=== PATIENT | female | born 1980 | race Caucasian/White ===

== ENCOUNTER 2017-11-22 23:44 | Emergency (ER) | payer SELFPAY ==
[~2017-11-22] VITALS: Ht 157.5 cm; Wt 72.5 kg
[~2017-11-22 23:44] MED LIST: ANTIVERT 25MG25 MG PO; MACROBID 1100 MG/CAP PO; NO HOME MEDICATIONS; NORCO 325 MG-51 TAB PO; NORCO 325 MG-7.1 TAB PO; PYRIDIUM200 M1 PO
[2017-11-22 23:47] VITALS: BP 100/64; PULSE 81; TEMP 97.9
[2017-11-23 00:15] LABS: COLLECTION METHOD CLEAN CATCH
[2017-11-23 00:40] LABS: AMORPHOUS CRYSTAL Present /uL; MUCOUS Present /lpf; PH 5 (5-8); URINE APPEARANCE Cloudy; URINE BACTERIA Occasional /hpf; URINE BILIRUBIN Negative (NEGATIVE); URINE BLOOD 3+ (NEGATIVE); URINE COLOR Red; URINE GLUCOSE 1+ (NEGATIVE); URINE KETONE Negative (NEGATIVE); URINE LEUKOCYTE ESTERASE Negative (NEGATIVE); URINE NITRATE Positive (NEGATIVE); URINE PROTEIN(semi-quant) 3+ (NEGATIVE); URINE RBC >50 /hpf; URINE UROBILINOGEN >=4.0 mg/dL (NEGATIVE)
[2017-11-23] MEDS ORDERED: MACROBID 1100 MG/CAP PO (00:57)
== END 2017-11-23 01:17 | disposition home or self-care (01) ==
LOC: COL.ER 23:44
PROVIDERS: Nurse Practitioner
DX: N39.0 Urinary tract infection, site not specified (principal); Z87.440 Personal history of urinary (tract) infections

== ENCOUNTER 2019-04-06 23:14 | Emergency (ER) | payer SELFPAY ==
[~2019-04-06] VITALS: Ht 154.9 cm; Wt 65.9 kg
[2019-04-06 23:21] VITALS: TEMP 98.5
[2019-04-07 00:53] LABS: BASO % 0.1 % (0.0-2.0); EOS # 0.1 (0.0-0.7); EOS % 1.7 % (0-4.0); GRAN # 4.1 (1.4-6.5); GRAN % 51.7 % (42.2-75.2); HEMOGLOBIN 12.5 g/dl (12.5-16.0); LYMPH # 3.1 (1.2-3.4); LYMPH % 39.2 % (20.0-51.0); MEAN CELL VOLUME 90 fl (80.0-100.0); MEAN CORPUSCULAR HEMOGLOBIN 31 pg (27.0-31.0); MEAN CORPUSCULAR HGB CONC 34 g/dl (33.0-37.0); MEAN PLATELET VOLUME 9.9 fl (7.4-10.4); MONO # 0.5 (0.1-0.6); MONO % 6.9 % (1.7-9.3); PLATELET COUNT 264 K/mm3 (130-400); RED BLOOD COUNT 4.02 M/mm3 (4.10-5.30); REDCELL DISTRIBUTION WIDTH-CV 11.9 % (11.5-14.5)
[2019-04-07 01:04] LABS: C-REACTIVE PROTEIN 0.6 mg/dL (0.0-0.9); CALCIUM 8.4 mg/dL (8.4-10.2); CREATININE, serum 0.68 (0.52-1.25); POTASSIUM 3.8 mmol/L (3.4-5.0)
[2019-04-07 01:06] LABS: HEMATOCRIT 36.3 % (37.0-47.0)
[2019-04-07 03:39] LABS: COLLECTION METHOD CLEAN CATCH
[2019-04-07 03:55] LABS: MUCOUS Present /lpf; PH 5 (5-8); URINE APPEARANCE Hazy; URINE BACTERIA Rare /hpf; URINE BILIRUBIN Negative (NEGATIVE); URINE BLOOD Negative (NEGATIVE); URINE COLOR Yellow; URINE GLUCOSE Negative (NEGATIVE); URINE KETONE Negative (NEGATIVE); URINE LEUKOCYTE ESTERASE 3+ (NEGATIVE); URINE NITRATE Negative (NEGATIVE); URINE PROTEIN(semi-quant) Negative (NEGATIVE); URINE UROBILINOGEN Negative (NEGATIVE)
[2019-04-07] MEDS ORDERED: VOLTAREN 75 DR75 MG PO (04:16)
[2019-04-07] MEDS ORDERED: FLEXERIL 1010 MG/TAB PO (04:16)
[2019-04-07 04:30] VITALS: BP 138/79; PULSE 86
== END 2019-04-07 04:30 | disposition home or self-care (01) ==
LOC: COL.ER 23:14
PROVIDERS: Emergency Medicine
DX: M54.5 Low back pain (principal); Z88.6 Allergy status to analgesic agent
CPT/HCPCS: J1885; J2360; J2930; J3010; J7030

== ENCOUNTER 2021-10-22 21:42 | Emergency (ER) | payer SELFPAY ==
[~2021-10-22] VITALS: Ht 152.4 cm; Wt 65.9 kg
[~2021-10-22 21:42] MED LIST changes: +FLEXERIL 1010 MG/TAB PO; +VOLTAREN 75 DR75 MG PO
[2021-10-22 22:00] VITALS: TEMP 98
[2021-10-22] MEDS ORDERED: PEPCID 20MG TAB20 MG PO (23:30)
[2021-10-22] MEDS ORDERED: ZOFRAN ODT4 MG PO (23:30)
[2021-10-22 23:45] VITALS: BP 116/81; PULSE 63
== END 2021-10-22 23:45 | disposition home or self-care (01) ==
LOC: COL.ER 21:42
DX: R51.9 Headache, unspecified (principal); R10.13 Epigastric pain; R11.2 Nausea with vomiting, unspecified; Z20.822 Contact with and (suspected) exposure to COVID-19
CPT/HCPCS: J1885

== ENCOUNTER 2022-10-15 21:36 | Emergency (ER) | payer SELFPAY ==
[~2022-10-15] VITALS: Ht 157.5 cm; Wt 70.0 kg
[~2022-10-15 21:36] MED LIST changes: +PEPCID 20MG TAB20 MG PO; +ZOFRAN ODT4 MG PO
[2022-10-15 22:20] LABS: BASO % 0.1 % (0.0-2.0); EOS % 0.1 % (0.0-4.0); GRAN # 7.6 K/mm3 (1.4-6.5); GRAN % 82.6 % (42.2-75.2); HEMATOCRIT 39.9 % (37.0-47.0); HEMOGLOBIN 14.3 g/dl (12.5-16.0); LYMPH # 1.1 K/mm3 (1.2-3.4); LYMPH % 12.3 % (20.0-51.0); MEAN CELL VOLUME 87 fl (80.0-100.0); MEAN CORPUSCULAR HEMOGLOBIN 31 pg (27-31); MEAN CORPUSCULAR HGB CONC 36 g/dl (33.0-37.0); MEAN PLATELET VOLUME 10.1 fl (7.4-10.4); MONO # 0.4 K/mm3 (0.1-0.6); MONO % 4.3 % (1.7-9.3); PLATELET COUNT 260 K/mm3 (130-400); RED BLOOD COUNT 4.59 M/mm3 (4.10-5.30); REDCELL DISTRIBUTION WIDTH-CV 12.1 % (11.5-14.5)
[2022-10-15 22:44] LABS: ALANINE AMINOTRANSFERASE 13 U/L (0-55); ALBUMIN 3.7 gm/dL (3.5-5.0); ALKALINE PHOSPHATASE 73 U/L (40-150); ANION GAP 11 mmol/L (7-16); AST,SGOT 14 U/L (5-34); BILIRUBIN,TOTAL 0.9 mg/dL (0.2-1.2); BLOOD UREA NITROGEN 12 mg/dL (7-19); CALCIUM 8.6 mg/dL (8.4-10.2); CARBON DIOXIDE 18 mmol/L (22-29); CHLORIDE 107 mmol/L (98-107); GLUCOSE 89 mg/dL (70-99); POTASSIUM 3.4 mmol/L (3.5-4.5); SODIUM 136 mmol/L (136-145); TOTAL PROTEIN 7.2 gm/dL (6.2-8.1)
[2022-10-15 22:51] LABS: TROPONIN-I < 0.010 ng/mL (0.00-0.033)
[2022-10-15 23:10] VITALS: BP 117/74; PULSE 87; TEMP 98
== END 2022-10-15 23:10 | disposition home or self-care (01) ==
LOC: COL.ER 21:36
PROVIDERS: Family Medicine
DX: R07.89 Other chest pain (principal); R06.4 Hyperventilation; R00.0 Tachycardia, unspecified; R20.2 Paresthesia of skin
CPT/HCPCS: J2060